=== PATIENT | female | born 1955 | race Hispanic/Latino ===

== ENCOUNTER 2017-07-20 12:50 | Emergency (ER) | payer SELFPAY ==
[~2017-07-20] VITALS: Ht 152.4 cm; Wt 86.2 kg
[2017-07-20] MEDS ORDERED: HYDROCODONE/APAP 10MG-325MG TAB PO ONE ×2 (13:30)
--- NOTE | 2017-07-20 15:22 | Diagnostic Imaging Report ---
PROCEDURE:X-RAY LEFT WRIST, COMPLETE COMPARISON:None. INDICATIONS:FALL FINDINGS: 3 views of the left wrist (AP, lateral, and oblique) Comminuted, transverse fracture through the distal radial metaphysis. There is dorsal displacement of the distal fracture fragment. Avulsion fracture of the ulnar styloid. Soft tissue swelling about the left wrist. CONCLUSION: Distal radial and ulnar fractures as above. Dictated by: Tripp Martin M.D. on 07/20/2017 at 15:32 Electronically approved by: Tripp Martin M.D. on 07/20/2017 at 15:32
--- NOTE | 2017-07-20 15:24 | Diagnostic Imaging Report ---
PROCEDURE:X-RAY LEFT FOREARM, TWO VIEWS COMPARISON:None. INDICATIONS:FALL FINDINGS: 2 views of the left forearm (AP and lateral). Fractures of the distal radius and ulna are described on dictation for wrist radiograph. No additional fractures of the left forearm. There is soft tissue swelling about the left wrist. CONCLUSION: Distal radial and ulnar fractures. Dictated by: Tripp Martin M.D. on 07/20/2017 at 15:34 Electronically approved by: Tripp Martin M.D. on 07/20/2017 at 15:34
--- NOTE | 2017-07-20 15:28 | Diagnostic Imaging Report ---
PROCEDURE:KNEE LEFT THREE VIEWS COMPARISON:None. INDICATIONS:FALL FINDINGS: 3 views of the left knee (AP, lateral, and oblique) Questionable minimally displaced fracture of the lateral tibial plateau. The bones are well-mineralized. The soft-tissues are unremarkable. There is mild tricompartmental osteoarthritis of the left knee. Small knee joint effusion. CONCLUSION: Questionable minimally displaced fracture of the lateral tibial plateau. Consider CT of the knee (without contrast) for better evaluation. Dictated by: Tripp Martin M.D. on 07/20/2017 at 15:37 Electronically approved by: Tripp Martin M.D. on 07/20/2017 at 15:38
--- NOTE | 2017-07-20 16:12 | Diagnostic Imaging Report ---
PROCEDURE:CT OF LT KNEE WO CONTRAST COMPARISON:None. INDICATIONS:FALL LEFT KNEE INJURY FINDINGS: No fracture or dislocation of the tibia, fibula, or patella. Mild tricompartmental osteoarthritis of the left knee. A well-corticated ossicle within the knee joint (series 5, image 40) may represent a loose body. There is a small knee joint effusion. CONCLUSION: Mild degenerative changes of the left knee. No fracture or dislocation. Dictated by: Tripp Martin M.D. on 07/20/2017 at 16:21 Electronically approved by: Tripp Martin M.D. on 07/20/2017 at 16:21
== END 2017-07-20 17:32 | disposition home or self-care (01) ==
LOC: ER 12:50
DX: S52.355A Nondisplaced comminuted fracture of shaft of radius, left arm, initial encounter for closed fracture (principal); S52.612A Displaced fracture of left ulna styloid process, initial encounter for closed fracture; M25.562 Pain in left knee; S80.02XA Contusion of left knee, initial encounter; W01.0XXA Fall on same level from slipping, tripping and stumbling without subsequent striking against object, initial encounter; Y92.008 Other place in unspecified non-institutional (private) residence as the place of occurrence of the external cause
CPT/HCPCS: 99283